=== PATIENT | female | born 1990 | race Caucasian/White ===

== ENCOUNTER 2016-11-13 02:49 | Emergency (ER) | payer OTHER ==
[2016-11-13 04:05] LABS: BILIRUBIN NEGATIVE (NEGATIVE); BLOOD NEGATIVE Ery/uL (NEGATIVE); CLARITY CLEAR (CLEAR); COLOR STRAW (YELLOW); GLUCOSE (U) NORMAL (NORMAL); KETONE (U) NEGATIVE (NEGATIVE); LEUKOCYTES 3+ Leu/uL (NEGATIVE); NITRITE NEGATIVE (NEGATIVE); PROTEIN NEGATIVE (NEGATIVE); UROBILINOGEN 0.2 mg/dL (0.2-1.0); pH 7.5 (5.0-9.0)
[2016-11-13 04:21] LABS: BACTERIA 2+; URINARY RBC RARE
== END 2016-11-13 05:01 | disposition home or self-care (01) ==
LOC: FER 02:49
PROVIDERS: Emergency Medicine Emergency Medical Services
DX: O23.43 Unspecified infection of urinary tract in pregnancy, third trimester (principal); O99.333 Smoking (tobacco) complicating pregnancy, third trimester; F17.210 Nicotine dependence, cigarettes, uncomplicated; Z87.440 Personal history of urinary (tract) infections; Z3A.31 31 weeks gestation of pregnancy
CPT/HCPCS: 81001; 87088; 87804; 87899; 99283